=== PATIENT | female | born 1945 | race Caucasian/White ===

== ENCOUNTER → 2016-06-04 | Outpatient (CLI) | payer MEDICARE, BC ==
[~2016-06-04] MED LIST: ALPH1CAP PO; APIX5TAB PO; CALC1TAB87 PO; HYDR12.57 PO; IBUP200C PO; LEVO125T4 PO; MULT-120 PO; NAPR220T95 PO; PROP150T PO; VITA10004 PO; VITATAB21 PO
[2016-06-04 11:35] LABS: BLOOD, URINE NEG (NEG); COMMENT (UR) CULT NOT INDICATED; CULTURE IF INDICATED CULT NOT INDICATED; GLUCOSE,URINE NEG (NEG); KETONE, URINE NEG (NEG); MUCUS URINE FEW /lpf (OCC); NITRITE,URINE NEG (NEG); URINE COLOR LIGHT-YELLOW (YELLW/STRAW)
[2016-06-04 11:50] LABS: INTERNATIONAL NORMALIZED RATIO 0.9 RATIO; PROTHROMBIN TIME - PATIENT 10.3 SEC (9.8-11.6)
[2016-06-04 11:57] LABS: BICARBONATE 30.6 MEQ/L (21.0-32.0); POTASSIUM 4.2 MEQ/L (3.5-5.1)
--- NOTE | 2016-06-04 13:23 | RADRPT ---
EXAM DATE/TIME: 06/04/2016 11:56 [place] COMPARISON: No previous studies available for comparison. INDICATIONS : Evaluate for pneumonia, pneumothorax, or communicable disease. Pre op for carpal tunnel release. MEDICAL HISTORY : None. SURGICAL HISTORY : None. ENCOUNTER: Initial ACUITY: 1 day PAIN SCORE: 0/10 LOCATION: Bilateral chest FINDINGS: PA and lateral views of the chest demonstrate the lungs to be symmetrically aerated without evidence of mass, infiltrate or effusion. The cardiomediastinal contours are unremarkable. A 5 mm nodule proj ects over the right upper lobe. Mild degenerative changes. Osseous structures are intact. Fusion victorino g the lower lumbar spine not completely visualized. CONCLUSION: 1. Right upper lobe nodule measures [address] chest recommended. 2. No infiltrate. Demarco Obrien MD on June 04, 2016 at 13:21 Board Certified Radiologist. This report was verified electronically.
--- NOTE | 2016-06-05 11:37 | EKG ---
Date Performed: 06/04/2016 Time Performed: 11:22:12 PTAGE: 70 years EKG: SINUS BRADYCARDIA WITH SINUS ARRHYTHMIA BORDERLINE ECG NO PREVIOUS TRACING DOCTOR: Víctor Quintana Interpretating Date/Time 06/05/2016 11:36:12
== END ==
LOC: CPRE 10:53
PROVIDERS: ATTEND Orthopaedic Surgery
DX: Z01.810 Encounter for preprocedural cardiovascular examination (principal); Z01.811 Encounter for preprocedural respiratory examination; Z01.812 Encounter for preprocedural laboratory examination; G56.01 Carpal tunnel syndrome, right upper limb
CPT/HCPCS: 36415; 71020; 80048; 81001; 85610; 93005

== ENCOUNTER → 2016-06-07 | Day surgery (SDC) | payer MEDICARE, BC ==
--- NOTE | 2016-06-04 16:23 | MH ---
cc: MARIA EUGENIA RED DATE OF ADMISSION 06/07/2016 ADMITTING DIAGNOSIS Right carpal tunnel syndrome, pain right hand. HISTORY The patient is a 70-year-old white female who has experienced pain and numbness of her right hand of at least three months duration. She had noted the gradual onset of her symptoms unrelated to injury or unusual activity. She had initially conformed to conservative management which included application of various topical agents including Voltaren gel, Alfred-Berger and BioFreeze. She was avoiding use of anti-inflammatory medication as she was diagnosed in February of this past year with atrial fibrillation for which she had been treated with Eliquis. There was no prior history of injury involving her right hand. [facility] and at that time x-ray studies of the right hand were without evidence of acute or chronic bony abnormality. The patient was diagnosed as having tenosynovitis with pain of the hand for which recommendation was made to proceed with EMG evaluation. Subsequent testing in this regard demonstrated right carpal tunnel syndrome of a moderate degree. The patient had remained symptomatic with pain about her right hand which was interfering with all activities of daily living and kept her from returning to golf which had been part of her normal exercise routine. The findings of the study were reviewed and treatment options discussed. The pros and cons of continuing with conservative management versus operative intervention involving a carpal tunnel release was outlined in detail. Emphasis was made regarding the fact that the decision to proceed with surgery would be left entirely to the patient's discretion. She readily admitted that she was quite eager to pursue operative treatment in the hope that it might afford her overall improvement of her ongoing symptoms. In compliance with her wishes she was scheduled for admission at this time in order that the above be accomplished. She is right-hand dominant. PAST MEDICAL HISTORY Her past medical history, hospitalizations and surgeries include: 1. Left total knee arthroplasty. 2. Arthroscopic surgery of her left knee prior to the knee replacement. 3. Tonsillectomy. 4. Appendectomy. 5. Vaginal hysterectomy. 6. Colonoscopy. 7. Sinus surgery. 8. Extensive lumbar spine surgery. 9. And medical management for pneumonia. 10. As well as heart disease for which she was later diagnosed as having atrial fibrillation. Medical illnesses include: 1. Hypothyroidism. 2. Atrial fibrillation. MEDICATIONS Her current medications: 1. Synthroid 125 mcg daily. 2. Propafenone 150 milligrams twice daily. 3. Eliquis 5 mg twice daily. 4. Hydrochlorothiazide 12.5 mg daily. 5. Calcium 600 mg twice daily. 6. Alpha lipoic acid 200 mg daily. 7. Multivitamin 50 Plus one daily. 8. Vitamin C 500 mg daily. ALLERGIES The patient denies any known drug allergies. REVIEW OF SYSTEMS She wears glasses. No headache or seizure. She has had history of vasovagal syncope. Auditory acuity intact. No tinnitus. No bleeding gums or dysphagia. Occasional sinus congestion secondary to environmental irritants. No epistaxis. She has had pneumonia in the past. No tuberculosis. No angina. She is medically managed for atrial fibrillation. Appetite good. Bowel movements regular. No hepatitis, gallbladder disease, ulcers or hemorrhoids. No urinary tract infection. No kidney stones. No history of fractures. No psychiatric illness. Her remaining review of systems is unremarkable and noncontributory. FAMILY HISTORY 53 years, 71 years of age in good health. Two sons indicated to be in good health. Family history is positive for heart disease, pancreatic and esophageal cancer. SOCIAL HISTORY The patient completed a college education. She admits to a 50 pack-year use of tobacco but has discontinued smoking within the past two or more years. Ethanol consumption on a limited and social basis. PHYSICAL EXAMINATION Height 5 feet 5 inches, weight 146 pounds. GENERAL: An alert and oriented and responsive 70-year-old white female who sits quietly upon the examination table in no obvious distress. HEAD, EARS, EYES, NOSE, AND THROAT: Pupils are equally round and reactive to light. Extraocular movements full. Sclerae clear. External nares clear. External auditory canals clear. Dental intact. Mucous membranes pink and moist. Pharynx clear. NECK: Supple. Active range of motion with no significant pain. Carotid pulse palpable bilaterally. Trachea midline. Thyroid without enlargement. LUNGS: Clear to auscultation and percussion. No CVA tenderness. BACK: No discomfort throughout the dorsolumbar spine. HEART: Regular rhythm. No murmur or gallop. ABDOMEN: Soft, nontender. Bowel sounds present. PELVIC: Per primary care physician. EXTREMITIES: Right hand no swelling or discoloration. Intrinsic function is grossly intact with flexion, extension maneuvering. There is diminished sensation generalized about the tip of the thumb. No obvious thenar or hypothenar atrophy. Tinel sign negative. Durkan test positive. Phalen test positive. [employer] strength intact. Radial pulse palpable. NEUROLOGICAL: Cranial nerves II-XII grossly intact. IMPRESSION Right carpal tunnel syndrome, pain right hand. PLAN Right carpal tunnel release. The nature of the planned surgical procedure, the potential complications and risks associated, the expectations of surgery and the consent form were thoroughly reviewed with the patient in the presence of her prior to admission to the hospital. She has indicated a full understanding regarding all of the above and given consent to proceed with treatment as outlined. MD BLAYNE Lyon/KK /3:22 PM /4:02 PM
[~2016-06-07] VITALS: Ht 165.1 cm; Wt 67.0 kg
[~2016-06-07] MED LIST changes: +*morphine SULFATE 8 MG/ML PERIprocedure ONLY ONE; +ACETAMINOPHEN/HYDROcodone 325 MG/5 MG TAB PO PRN; +DO NOT ADM ANY ANTICOAGULANT DRUGS XX PRN; +FAMOTIDINE 20 MG/2 ML VIAL ONE; -IBUP200C PO; +INSULIN HUMAN REGULAR 1,000 UNITS/10 ML VIAL SQ PRN; +LACTATED RINGER'S 1000 ML IV SCH; +METOPROLOL TARTRATE 25 MG TAB PO PRN; +MIDAZOLAM HCL 2 MG/2 ML VIAL ONE; +MORPHINE SULFATE 10 MG/ML INJ IM PRN; -NAPR220T95 PO; +ONDANSETRON HCL 4 MG/2 ML VIAL IV PUSH ONE; +POVIDONE IODINE 7.5% SCRUB 118 ML BOTTLE TOP SCH; +PROMETHAZINE INJ 25 MG/ML VIAL IM PRN; +PROPOFOL 200 MG/20 ML AMP IV ONE; +SODIUM CHLORID 0.9% 500 ML IV SCH; -VITA10004 PO; +ceFAZolin 2 GM PREMIX 50 ML IV SCH; +ePHEDrine/NS 25 MG/5 ML SYR IV ONE
[2016-06-07 06:00] VITALS: BP 165/89; PULSE 62; RESP 18; TEMP 98; O2SAT 97
[2016-06-07 09:21] VITALS: BP 154/78; PULSE 54; RESP 16; TEMP 97.7; O2SAT 95
--- NOTE | 2016-06-08 20:00 | MP ---
cc: MARIA EUGENIA SAMUEL DATE OF SURGERY 06/07/16 PREOPERATIVE DIAGNOSIS Right carpal tunnel syndrome. POSTOPERATIVE DIAGNOSIS Right carpal tunnel syndrome PROCEDURE Right carpal tunnel release. SURGEON Darin Samuel MD ANESTHESIA General by LMA insertion PROCEDURE IN DETAIL Following induction of satisfactory general anesthesia by LMA insertion as completed per the department of anesthesia, a tourniquet was established around the proximal portion of the right upper extremity. The extremity proper was prepped with Betadine solution and draped into a sterile field in the routine manner. Prior to initiation of the actual procedure, the standard time-out protocol was completed. All parameters were appropriately addressed and confirmed by operating room personnel. The extremity was elevated for approximately 1 minute and the tourniquet thus inflated to 200 mmHg pressure. A sharp skin incision was initiated in the mid palmar region immediately distal to the flexor crease of the wrist and developed through underlying subcutaneous tissue with hemostasis maintained by electrocautery. By deepening dissection utilizing loupe magnification, the transverse carpal ligament was identified. Proximally a sharp entry was completed. A mosquito clamp passed deep to the ligamentous structure, superficial to the underlying nerve. Under direct visualization, the ligament was divided into a proximal to distal orientation. Blunt probing proximally and distally confirmed adequate decompression within the confines of the carpal tunnel space. Examination of the underlying median nerve did demonstrate obvious compressive changes with a flattening effect and hyperemic appearance of the nerve itself. The wound was copiously irrigated with saline solution. Hemostasis maintained by electrocautery. Skin margins were thereafter reapproximated with interrupted 4-0 nylon suture. Xeroform gauze and a bulky dry sterile hand dressing applied. Tourniquet deflated after 12 minutes of tourniquet time. Anesthesia discontinued. The patient thus transferred to a hospital stretcher and returned to the recovery room in satisfactory condition having tolerated her operative procedure well. Estimated blood loss was negligible. MD BLAYNE Lyon/ 7:54 AM 7:53 PM
== END | disposition home or self-care (01) ==
LOC: HSDC 05:33
PROVIDERS: ATTEND Orthopaedic Surgery
DX: G56.01 Carpal tunnel syndrome, right upper limb (principal)
CPT/HCPCS: 01810; 64721; J0690; J2250; J2270; J2405; J3010; J7120

== ENCOUNTER 2017-11-17 11:56 | Observation (INO) ==
[2017-11-17] MEDS ORDERED: Morphine Inj 4 MG/ML Vial IV.PUSH ONE (12:13)
--- NOTE | 2017-11-17 12:27 | ED ---
HPI General Chief Complaint: Chest Pain Stated Complaint: Chest Pain/SOB Time Seen by Provider: 11/17/17 12:08 Source: patient Mode of arrival: ambulatory Limitations: no limitations History of Present Illness HPI narrative: 72 yo F patient arrives with a complaint of retrosternal chest pain 8 or 9/10 in severity which started about 2 hours ago after she had an unpleasant phone conversation. There is radiation to the left arm intermittently. Patient reports a history of hypertension and atrial fibrillation. She takes Eliquis. No fever or cough. No vomiting. MD complaint: chest pain Complete Quality Measures for STEMI Alert Patients STEMI Alert: No Onset (ago): hour(s) (2) Duration: constant Onset: other (after an unpleasant phone call) Pain location: substernal Severity scale (1-10): 9 Pain radiation: LUE Associated symptoms: other (sweats all over) Related Data Home Medications Medication Instructions Recorded Confirmed apixaban [Eliquis] 5 mg PO BID 10/01/17 11/17/17 levothyroxine 175 mcg PO DAILY 10/01/17 11/17/17 multivitamin with minerals 1 tab PO DAILY 10/01/17 11/17/17 [Multiple Vitamin-Minerals] propafenone 150 mg PO BID 10/01/17 11/17/17 cyanocobalamin (vitamin B-12) 1,000 mcg PO DAILY 10/06/17 11/17/17 [Vitamin B-12] losartan-hydrochlorothiazide 1 tab PO DAILY 10/06/17 11/17/17 calcium carbonate [Calcium 500] 600 mg PO BID 11/08/17 11/17/17 cholecalciferol (vitamin D3) 5,000 unit PO DAILY 11/08/17 11/17/17 [Vitamin D3] Allergies Allergy/AdvReac Type Severity Reaction Status Date / Time No Known Allergies Allergy Unknown NONE Uncoded 10/06/17 09:34 Review of Systems ROS: all other systems reviewed are negative Constitutional Denies fever(s) PMFSH Social History Social History Substance History: No History of Abuse Second Hand Smoke Exposure: No Smoking Status: Former smoker How Often Do You Have a Drink Containing Alcohol: 2 to 4 times a month Recent Travel in [facility] within the Last 8 Weeks: No Recent Out of Country Travel within the Last 8 Weeks: No Exam Narrative Exam Narrative: GENERAL: 72-year-old female well-nourished well-developed mild to moderate distress secondary to pain SKIN: Focused skin assessment warm/dry. HEAD: Atraumatic. Normocephalic. EYES: Pupils equal and round. No scleral icterus. No injection or drainage. ENT: No nasal bleeding or discharge. Mucous membranes pink and moist. NECK: Trachea midline. No JVD. CARDIOVASCULAR: Regular rate and rhythm. No murmur appreciated. RESPIRATORY: No accessory muscle use. Clear to auscultation. Breath sounds equal bilaterally. GASTROINTESTINAL: Abdomen soft, non-tender, nondistended. Hepatic and splenic margins not palpable. MUSCULOSKELETAL: No obvious deformities. No clubbing. No cyanosis. No edema. NEUROLOGICAL: Awake and alert. No obvious cranial nerve deficits. Motor grossly within normal limits. Normal speech. PSYCHIATRIC: Appropriate mood and affect; insight and judgment normal. Course Reevaluation(s) Reevaluation #1: d/w Dr Alfredo for cardiology placed o2 nc work up started ongoing monitoring Time: 12:22 Reevaluation #2: PT reports pain has improved. It was sharp now more dull. VSS. Time: 12:46 Reevaluation #3: Mild persistent pain. Results d/w with patient about [address] Alfredo is at the bedside now. Speaking in full sentences. VSS. Update at 1400 hrs.: The patient will be admitted to the main site with a plan for emergent coronary catheterization. She has had persistent pain. Vital signs are normal. Patient speaking in full sentences warm dry skin sitting upright. Discussed with Dr. Ward. Nitropaste and NS gtt started. No heparin 2 /2 Eliquis. Time: 13:31 Initial Documented Vital Signs Temperature 97.5 F L 11/17/17 12:10 Pulse Rate 65 11/17/17 12:10 Respiratory Rate 26 H 11/17/17 12:10 Blood Pressure 157/94 H 11/17/17 12:10 Pulse Oximetry 100 11/17/17 12:10 Last Documented Vital Signs Temperature 97.5 F L 11/17/17 12:10 Pulse Rate 66 11/17/17 13:05 Respiratory Rate 18 11/17/17 13:05 Blood Pressure 122/71 11/17/17 13:05 Pulse Oximetry 98 11/17/17 13:05 Critical Care Time Critical Care Time: Yes Total Critical Care Time: 35 Attestation: Aggregate critical care time was 45 minutes. Time to perform other separately billable procedures was not included in the critical care time. My time did not include minutes spent treating any other patients simultaneously or on activities that did not directly contribute to the patient's treatment. The services I provided to this patient were to treat and/or prevent clinically significant deterioration that could result in: cardiopulmonary arrest, I provided critical care services requiring my management, as noted below: Chart data review, documentation time, medication orders and management, vital sign assessments/reviewing monitor data, ordering and reviewing lab tests, ordering and interpreting/reviewing x-rays and diagnostic studies, care of the patient and discussion of the patient with the admitting physicians. Medical Decision Making MDM Narrative Medical decision making narrative: EVAC called emergently at 1355 Admission for NSTEMI with transfer to [facility] for emergent cath. Lab Data Lab results reviewed: Yes I reviewed the patient's lab results. Lab results narrative: Tn 0.38 Result diagrams: 11/17/17 12:20 11/17/17 12:20 Lab Results 11/17/17 11/17/17 11/17/17 Range/Units 12:20 12:20 12:20 CBC w Diff Auto diff final WBC 10.9 (4.0-11.0) th/mm3 RBC 4.46 (4.00-5.30) mil/mm3 Hgb 13.9 (11.6-15.3) gm/dL Hct 41.7 (35.0-46.0) % MCV 93.5 (80.0-100.0) fL MCH 31.2 (27.0-34.0) pg MCHC 33.3 (32.0-36.0) % RDW 13.7 (11.6-17.2) % Plt Count 334 (150-450) th/mm3 MPV 8.2 (7.0-11.0) fL Neut % (Auto) 72.7 H (16.0-70.0) % Lymph % (Auto) 19.1 (9.0-44.0) % Haralson % (Auto) 6.9 (0.0-8.0) % Eos % (Auto) 0.7 (0.0-4.0) % Baso % (Auto) 0.6 (0.0-2.0) % Neut # (Auto) 7.8 H (1.8-7.7) th/mm3 Lymph # (Auto) 2.1 (1.0-4.8) th/mm3 Haralson # (Auto) 0.8 (0.0-0.9) th/mm3 Eos # (Auto) 0.1 (0.0-0.4) th/mm3 Baso # (Auto) 0.1 (0.0-0.2) th/mm3 WBC Differential . Differential Comment . PT 10.3 (9.8-11.6) sec INR 1.0 Ratio APTT 25.9 (24.3-30.1) sec Sodium 136 (136-145) meq/L Potassium 3.9 (3.5-5.1) meq/L Chloride 101 (98-107) meq/L Carbon Dioxide 24.7 (21.0-32.0) meq/L Anion Gap 10 (5-15) meq/L BUN 19 H (7-18) mg/dL Creatinine 0.97 (0.50-1.00) mg/dL Estimated GFR 56 L (>89) mL/min Random Glucose 123 H (74-106) mg/dL Calcium 9.3 (8.5-10.1) mg/dL Magnesium 2.2 (1.5-2.5) mg/dL Total Creatine Kinase 105 (26-192) U/L CK-MB (CK-2) 3.0 (0.5-3.6) ng/mL Troponin I 0.38 H (0.02-0.05) ng/mL Imaging Data Attestation: I personally reviewed and interpreted this imaging study as follows : My impression: No PTX, no widened mediastinum Radiologist's impression: Chest X-Ray 11/17/17 12:13 CONCLUSION: No consolidation or effusion. Minimal basilar scarring or atelectasis. ECG Data EKG Prior to Arrival: No Attestation: I personally reviewed and interpreted this ECG as follows: Interpretation: EKG shows sinus rhythm with a rate of 66 normal axis intervals, nonspecific ST changes multiple leads Discharge Plan Discharge Disposition Patient Disposition: 30 Still Patient Physicians Team ED Provider: Adolfo Florence Primary Care Provider: Casper Vanessa Rxs /Orders / Referrals /Forms Prescriptions: No Action calcium carbonate [Calcium 500] 500 mg calcium (1,250 mg) Tablet 600 mg PO BID RF: 0 cholecalciferol (vitamin D3) [Vitamin D3] 5,000 unit Tablet 5,000 unit PO DAILY RF: 0 propafenone 150 mg Tablet 150 mg PO BID RF: 0 levothyroxine 175 mcg Tablet 175 mcg PO DAILY RF: 0 multivitamin with minerals [Multiple Vitamin-Minerals] Tablet 1 tab PO DAILY RF: 0 apixaban [Eliquis] 5 mg Tablet 5 mg PO BID RF: 0 losartan-hydrochlorothiazide 50-12.5 mg Tablet 1 tab PO DAILY RF: 0 cyanocobalamin (vitamin B-12) [Vitamin B-12] 1,000 mcg Tablet 1,000 mcg PO DAILY RF: 0 Discharge Instructions Patient Printed Instructions: Chest Pain (ED) Status ED Status: Ready for Discharge
--- NOTE | 2017-11-17 12:41 | XR ---
EXAM DATE: 11/17/2017 12:32 PM EDT AGE/SEX: 72 years / Female INDICATIONS: Chest pain. CLINICAL DATA: This is the patient's initial encounter. Patient reports that signs and symptoms have been present for 1 day and indicates a pain score of 8/10. MEDICAL/SURGICAL HISTORY: . Atrial fib None. COMPARISON: No prior exams available for comparison. FINDINGS: A single AP view of the chest demonstrates the lungs to be symmetrically aerated without evidence of mass, infiltrate or effusion. The cardiomediastinal contours are unremarkable. Osseous structures a re intact. CONCLUSION: No consolidation or effusion. Minimal basilar scarring or atelectasis. Electronically signed by: Kenny Denney MD 11/17/2017 12:40 PM EDT
[2017-11-17 12:45] LABS: Baso # (Auto) 0.1 th/mm3 (0.0-0.2); Baso % (Auto) 0.6 % (0.0-2.0); Eos # (Auto) 0.1 th/mm3 (0.0-0.4); Eos % (Auto) 0.7 % (0.0-4.0); Hematocrit 41.7 % (35.0-46.0); Hemoglobin 13.9 gm/dL (11.6-15.3); Lymph # (Auto) 2.1 th/mm3 (1.0-4.8); Lymph % (Auto) 19.1 % (9.0-44.0); Mean Corpuscular HGB Conc 33.3 % (32.0-36.0); Mean Corpuscular Hemoglobin 31.2 pg (27.0-34.0); Mean Corpuscular Volume 93.5 fL (80.0-100.0); Mean Platelet Volume 8.2 fL (7.0-11.0); Mono # (Auto) 0.8 th/mm3 (0.0-0.9); Mono % (Auto) 6.9 % (0.0-8.0); Neut # (Auto) 7.8 th/mm3 (1.8-7.7); Neut % (Auto) 72.7 % (16.0-70.0); Platelet Count 334 th/mm3 (150-450); Red Blood Count 4.46 mil/mm3 (4.00-5.30); Red Cell Distribution Width 13.7 % (11.6-17.2); White Blood Count 10.9 th/mm3 (4.0-11.0)
--- NOTE | 2017-11-17 12:58 | ECG ---
Date Performed: 11/17/2017 Time Performed: 12:01:16 PTAGE: 72 years EKG: Sinus rhythm WITH SINUS ARRHYTHMIA LOW QRS VOLTAGE IN EXTREMITY LEADS SEPTAL MYOCARDIAL INFARCTION ABNORMAL ECG N o significant change from prior electrocardiogram. PREVIOUS TRACING : 06/04/2016 11.22 DOCTOR: Bay Mendez Interpretating Date/Time 11/17/2017 12:57:07
[2017-11-17 12:59] LABS: Chloride 101 meq/L (98-107); Potassium 3.9 meq/L (3.5-5.1); Sodium 136 meq/L (136-145)
[2017-11-17 13:02] LABS: Anion Gap 10 meq/L (5-15); Calcium 9.3 mg/dL (8.5-10.1); Carbon Dioxide 24.7 meq/L (21.0-32.0); Glucose,Random 123 mg/dL (74-106); Magnesium 2.2 mg/dL (1.5-2.5)
[2017-11-17 13:03] LABS: Blood Urea Nitrogen 19 mg/dL (7-18)
[2017-11-17 13:05] LABS: Activated Partial Thrombo Time 25.9 sec (24.3-30.1); Prothrombin Time 10.3 sec (9.8-11.6)
[2017-11-17 13:06] LABS: Glomerular Filtration Rate 56 mL/min (>89)
[2017-11-17 13:09] LABS: Creatine Kinase 105 U/L (26-192)
[2017-11-17 13:11] LABS: Troponin I 0.38 ng/mL (0.02-0.05)
[2017-11-17] MEDS ORDERED: Heparin 10,000 UNITS/10 ML Vial (for IV use) IV.PUSH STA (13:35)
[2017-11-17] MEDS: Sod Chloride 0.9% Inj 1,000 ML IV.CONT SCH (13:54)
[2017-11-17] MEDS ORDERED: Heparin/NS PF Inj 1,000 ML ONE (14:32)
[2017-11-17] MEDS ORDERED: fentaNYL Citrate Inj 100 MCG/2 ML Ampul ONE (14:33)
[2017-11-17] MEDS ORDERED: Heparin 10,000 UNITS/10 ML Vial (for IV use) ONE (14:33)
--- NOTE | 2017-11-17 15:29 | ECG ---
Date Performed: 11/17/2017 Time Performed: 13:33:00 PTAGE: 72 years EKG: Sinus rhythm WITH SINUS ARRHYTHMIA LOW QRS VOLTAGE IN EXTREMITY LEADS SEPTAL MYOCARDIAL INFARCTION ABNORMAL ECG N o significant change from prior electrocardiogram. PREVIOUS TRACING : 11/17/2017 12.01 DOCTOR: Bay Mnedez Interpretating Date/Time 11/17/2017 15:27:37
--- NOTE | 2017-11-17 16:02 | MB ---
cc: Leydi Cardenas MD, Mark MD , DATE: 11/17/2017 REASON FOR CONSULTATION: Chest discomfort, rule out acute coronary syndrome. HISTORY OF PRESENT ILLNESS: Ms. Kasper is a pleasant 72-year-old lady with a history of hypertension, mitral valve prolapse, paroxysmal atrial fibrillation, hyperlipidemia, who comes in this morning with about a 3-hour history of left-sided chest discomfort, heaviness in nature with no associated shortness of breath, palpitations or nausea. It is nonradiating. This came after an argument over the phone. She has had a history of dyspnea on exertion. She does not exercise with a cardio type of exercise on a regular basis. She walks sometimes on an incline after dinner with no discomfort. Denies palpitations, dizziness or syncope in general. Denies orthopnea, PND or leg swellings. Denies claudications. PAST MEDICAL HISTORY: Includes: 1. As mentioned above. 2. History of questionable myocardial infarction in 2008. 3. Gastroesophageal reflux disease. 4. Rheumatic fever in 1951. 5. Certain mitral valve prolapse. 6. Mild to moderate valvular heart disease with mild pulmonary hypertension. 7. Paroxysmal atrial fibrillation. 8. Hypothyroidism. 9. Hyperlipidemia. 10. Hypertension. PAST SURGICAL HISTORY: Includes the followin. Left knee replacement in 2014. 2. Left foot surgery in 2009. 3. Back surgery in 1992. 4. Hysterectomy in 1972. 5. Tonsillectomy in 1959. SOCIAL HISTORY: She used to smoke but stopped about 5 years ago. Denies ETOH abuse or recreational drug use. and lives with her . FAMILY HISTORY: Positive for coronary artery disease, hypertension and diabetes. No cancer. ALLERGIES: NO KNOWN DRUG ALLERGIES. MEDICATIONS: Include: 1. Eliquis 5 mg p.o. b.i.d. 2. Losartan/hydrochlorothiazide 50/12.5 mg p.o. daily. 3. Propafenone 150 mg p.o. b.i.d. 4. Synthroid 0.175 mg p.o. daily. 5. Ventolin inhaler. 6. Vitamin B12 at 1000 mcg p.o. daily. 7. Vitamin C 500 mg daily. 8. Multivitamins once daily. REVIEW OF SYSTEMS: A 12-point system review was unremarkable, except what is mentioned in the history of present illness. PHYSICAL EXAMINATION: GENERAL: A 72-year-old lady lying in bed, in no clear apparent distress, alert, oriented x3, answers questions appropriately. VITAL SIGNS: Blood pressure 132/74 mmHg, pulse 74 beats per minute and regular, respiration 14 per minute, afebrile. HEENT: Shows head is normocephalic. Pupils are equal and reactive. Throat is within normal limits. NECK: Supple. No carotid bruit. No thyromegaly. No jugular venous distention noted. LUNGS: A few crepitations at the bases, but otherwise clear. There is some diminished air entry bilaterally, which is not a new finding. CARDIOVASCULAR: S1 and S2 are normal with a faint S4 gallop and 1/6 systolic murmur across the precordium. ABDOMEN: Lax, nontender. Normoactive bowel sounds. No organomegaly. No masses felt. EXTREMITIES: No clubbing, cyanosis or edema. Pulses 2+ bilaterally. NEUROLOGIC: Grossly intact with no focal deficits. RECTAL: Deferred. DIAGNOSTIC DATA: EKG shows sinus rhythm with what seems to be early repolarization changes in the anterior and also the high lateral leads; however, somewhat more prominent compared to her baseline. There is no clear reciprocal ST depression in the inferior or lateral leads. LABORATORY DATA: Shows a white count of 10.9, hemoglobin of 13.9 with a platelet count of 334,000. INR of 1.01 and PTT of 25.9. Sodium 136, potassium 3.9, BUN 19, creatinine 0.97. Troponin I is 0.38. ASSESSMENT AND RECOMMENDATIONS: 1. Chest discomfort that has some atypical components; however, on top of EKG changes that might represent an acute event as well as mildly elevated troponin, she was advised to proceed with a cardiac catheterization on an urgent basis. The risks and benefits were all fully explained. Risks explained include, but not limited to bleeding, infection, blood clots, arrhythmia, myocardial infarction, cerebrovascular accident, , arterial dissection or perforation, renal failure, loss of limb, emergency bypass, etc., were all fully explained and benefits were explained and she is agreeable and wants to proceed. The increased risk of bleeding was also discussed with the fact that she is on Eliquis. 2. Paroxysmal atrial fibrillation. Remains in sinus rhythm. Continue propafenone. 3. Hyperlipidemia. Most recent lipid panel from July shows an LDL cholesterol of 65, HDL of 72 and triglycerides of 65. 4. Certain mitral valve prolapse, mild valvular regurgitation. Stable. Depending on the results of her cardiac catheterization, we will decide whether she will need a repeat echocardiogram. 5. Hypertension. Controlled. MD INDU Fair/tamanna , 01:59 PM , 02:11 PM
--- NOTE | 2017-11-17 16:18 | CATHPROC ---
[facility] HIS Report Study Information Study Number Admission Scheduled Start Study Start [id number] Nov 17 2017 11:56AM 11/17/2017 Nov 17 2017 3:01PM [place] Service Cardiac Catheterization Admit Source Facility Department Emergency department [facility] - Corporate Travel Expert Physician and Clinical Staff Initial MD Cardenas, Leydi Ice Cream Freezer Assistant Leana Hood,RN Recorder Casper Cody,RT(R) Scrub Pina Benson,FLUME MAKER TECH2 Procedures Performed Procedure Location (Site) Vessel Name Coronary Angiograms LCA Left Coronary Coronary Angiograms RCA Right Coronary LV Gram-hand inj. LV LV Ventricle Wire insertion Radial (right) Radial Art. Equipment Time Aircraft Electronics Technical Officer Description Size Mfg Part Number Used/Scraped TRANSDUCER, TRUWAVE [id number] 15:03 apiOmat * Used W/STOCKCOCK *[id number] INTRODUCER SET, [id number] 15:23 [employer] FR 5 Used MICROPUNCTURE *[id number] 15:03 Post-i BLANKET,WARM AIR CCL * Used *[id number] 15:03 Post-i PACK, CCL CUSTOM * Used *[id number] 15:03 [employer] PACER PEN, SKIN DUAL W/ RULER * Used *[id number] BAND, RADIAL COMPRESSION TR [id number] 15:46 APR MEDICAL 24CM Used SHORT 24 *[id number] 15:03 Digitel SHEATH, FR6.5 PRELUDE 11CM FR 6.5 038ACT Used *[id number] 15:03 [employer]itel WIRE, 3MMJ .035 180CM 180CM Used *[id number] 15:03 NAMIC MANIFOLD, 4 PORT * Used *[id number] 15:03 NYCOMED OMNIPAQUE, 350 MG, 150ML 150ML [id number] Used CATHETER, FR5 OPTITORQUE [id number] 15:18 TERUMO MEDICAL FR 5 Used RADIAL TIG 4.0 *[id number] SHEATH, FR6 TRANSRADIAL [id number] 15:28 TERUMO MEDICAL FR 6 Used SLENDER 10CM *[id number] History: Current Medications Medication Dosage/Unit Route Frequency Last Date/Time Taken COZAAR ELIQUIS History: Allergies Allergy Reaction No Known Allergies NONE History: Risk Factors Family History of Hypertension Dyslipidemia Previous [place] Previous Heart Failure Premature CAD Yes No No No No Prior Valve Prior PCI Prior CABG Surgery No No No Cerebrovascular Peripheral Artery Chronic Lung On Dialysis Diabetes Disease Disease Disease No No No No No History: Symptoms/Diagnosis Selection Items Chest pain History: Stress Tests Stress or Imaging Studies Performed No History: Other Disease Selection Items HTN History: Other Current Smoker Method Quit Packs a Day Years Used Pack Years No Cigarettes 5 Years Ago 1 50 50 Labs Hgb (g/dl) Hct (%) RBC (MIL/MM3) WBC (l/cumm) Platelets (thousands) 11.60-17.00 35.00-51.00 4.00-5.90 4.00-11.00 150.00-450.00 13.9 41.7 4.4 10.9 334 Glucose (mg/dl) BUN (mg/dl) Creatinine (mg/dl) BUN:Creatinine (1:x) 74.00-106.00 7.00-18.00 0.50-1.30 10.00-20.00 123 19 0.9 21.1 Na (meq/l) K (meq/l) Cl (meq/l) CO2 (mmol/L) Ca (mg/dl) 136.00-145.00 3.50-5.10 98.00-107.00 21.00-32.00 8.50-10.10 136 3.9 101 24.7 9.3 PT (sec) PTT (sec) INR (PTT:PT) 9.80-11.60 24.30-30.10 0.90-1.10 10.3 25.9 1 Troponin I (ng/ml) CPK (u/l) CPK-MB (ng/ML) 0.02-0.05 26.00-308.00 0.50-3.60 0.38 105 3.0 Medication Medication Total Dose (Bolus/Oral) Medication Total Dosage/Unit 1% XYLOCAINE 5 mL FENTANYL 50 mcg HEPARIN 1000 units NITRO OINTMENT 1 inches NTG (IC) 350 mcg VERAPAMIL 2.5 mg VERSED 1 mg Medications (Bolus/Oral) Medication Time Given Dosage/Unit Administered By Reason NITRO OINTMENT 11/17/2017 3:05:26 PM 1 inches Patient arrived on 1 inches NITRO OINTMENT in Left shoulder via Peripheral IV. VERSED 11/17/2017 3:20:58 PM 1 mg Adamy, Leana 1 mg VERSED given in lab by Leana Hood, MYKEL via Peripheral IV. Ordered by Leydi Cardenas. FENTANYL 11/17/2017 3:21:11 PM 50 mcg Leana Hood 50 mcg FENTANYL given in lab by Leana Hood, RN via Peripheral IV. Ordered by Leydi Cardenas. 1% XYLOCAINE 11/17/2017 3:22:35 PM 5 mL Leydi Cardenas 5 mL 1% XYLOCAINE given in lab by Leydi Cardenas in Right Wrist via Subcutaneous. Ordered by Leydi Cardenas. VERAPAMIL 11/17/2017 3:29:09 PM 2.5 mg Leydi Cardenas 2.5 mg VERAPAMIL given in lab by Leydi Cardenas via Intra-arterial. Ordered by Leydi Cardenas. NTG (IC) 11/17/2017 3:29:22 PM 250 mcg Leydi Cardenas 250 mcg NTG (IC) given in lab by Leydi Cardenas via Intra-arterial. Ordered by Leydi Cardenas. HEPARIN 11/17/2017 3:29:45 PM 1000 units Leydi Cardenas 1000 units HEPARIN given in lab by Leydi Cardenas via Intra-arterial. Ordered by Leydi Cardenas. NTG (IC) 11/17/2017 3:34:26 PM 100 mcg Leydi Cardenas 100 mcg NTG (IC) given in lab by Leydi Cardenas via Intra-coronary. Ordered by Leydi Cardenas. Initial Case Assessment Final Case Assessment Cardiovascular HR Rhythm NIBP Chest Pain 75 sr 107/70 0 Edema Present Skin color Skin None Normal Warm Dry Circulatory - Right Pulses Dorsalis Pedis Femoral 3 3 Scale (0,1,2,3,4,d) Circulatory - Left Pulses Dorsalis Pedis Femoral 3 3 Scale (0,1,2,3,4,d) Neurological State Oriented to time-place- Alert Moves all extremities person Respiration - General Respiration Rate SpO2 (%) O2 (lpm) (B/min) 18 96 0 Chronological Log Time Study Chronological Log 15:01:29 Patient arrived via Bed. Positive Allens test performed by Guanako Abernathy. 15:01:31 Patient Name, D.O.B, / Armband Verified By R.N. 15:01:33 Consent signed by the physician and the patient and verified by the Corporate Travel Expert staff. 15:01:33 Pre-op and post- op instructions given; patient acknowledges understanding of instructions. 15:01:36 Allens test performed on the left radial and ulnar artery. 15:01:37 Patient has been NPO for More than 6Hrs. 15:03:20 Skin Breakdown- none per patient. 15:04:02 Verbal Stimulation=2 Physical Stimulation=2 Airway=2 Respiration=2 TOTAL=8. (0=absent, 1=li mited, 2=present) 15:05:07 Patient Warmer Placed on the Table. 15:05:09 Odalys Prominences Protected 15:05:10 A # 20 IV was noted in the Antecubital (left). Grade = 0 15:05:11 A # 20 IV was noted in the Forearm (left). Grade = 0 15:05:26 Patient arrived on 1 inches NITRO OINTMENT in Left shoulder via Peripheral IV. 15:05:27 MD arrived. 15:05:53 History and physical on the chart or being dictated. 15:05:54 Assessment: Initial Case Vitals capture started with the following parameters, Patient=Adult, Interval=5 min, Initial Pr zyaxdr=362 mmHg, 15:07:31 Deflation Rate=5 mmHg, Cuff placed on Left Arm 15:08:08 YQVC=973/89 mmhg, SpO2=86.0 %, Pain=4, Fernando=10, Shaikh=2 15:11:08 Right Radial and groin(s) prepped with 2% chlorhexidine, and draped after a 3 min. waiting time. 15:13:34 HR=68 bpm, ESXH=853/80 mmhg, SpO2=91.0 %, Pain=4, Fernando=10, Shaikh=2 15:15:34 Reference ECG taken 15:15:38 Pressure channel 1 zeroed. 15:16:02 Pt belongs given to family in waiting room. 15:18:45 HR=64 bpm, OUWL=544/75 mmhg, SpO2=97.0 %, Shaikh=2 Time Out. Correct patient, correct procedure, correct physician, labs, allergies, and equipment verified with distillery laborer 15:20:03 team present. Fire risk assesment completed (see hard stop sheet for coding). Time Out Conc urred by and individual staff in procedure. 15:20:12 Presedation re-assessment performed by Corporate Travel Expert RN. 15:20:14 Case Start 15:20:16 Verbal Stimulation=2 Physical Stimulation=2 Airway=2 Respiration=2 TOTAL=8. (0=absent, 1=li mited, 2=present) 15:20:58 1 mg VERSED given in lab by Leana Hood, MYKEL via Peripheral IV. Ordered by Wes Cardenas 15:21:11 50 mcg FENTANYL given in lab by Leana Hood, MYKEL via Peripheral IV. Ordered by Laurence Cardenas shryana. 15:22:35 5 mL 1% XYLOCAINE given in lab by Leydi Cardenas in Right Wrist via Subcutaneous. Ordered b Leydi Abdalla. 15:23:06 HR=65 bpm, EXTO=468/76 mmhg, SpO2=98.0 %, Shaikh=2 15:26:05 Access site was Right Radial Artery . A SHEATH, FR6 TRANSRADIAL SLENDER 10CM FR 6 was advanced into the Radial (right) using the Perc utaneous 15::58 technique. 15:28:09 HR=39 bpm, NIBP=97/60 mmhg, SpO2=95.0 %, Shaikh=2 15:29:09 2.5 mg VERAPAMIL given in lab by Leydi Cardenas via Intra-arterial. Ordered by Kimo Cardenas af. 15:29:22 250 mcg NTG (IC) given in lab by Leydi Cardenas via Intra-arterial. Ordered by Kimo Cardenas af. 15:29:45 1000 units HEPARIN given in lab by Leydi Cardenas via Intra-arterial. Ordered by Theresa, As hraf. A CATHETER, FR5 OPTITORQUE RADIAL TIG 4.0 FR 5 was advanced over a wire. OMNIPAQUE, 350 MG, 150 ML 150ML 15:30:49 was used for injections. Recorded Pressure: Ao, HR=71, Condition=Condition 1 15:32:48 (Aorta) Ao 111/68/88 15:33:04 HR=66 bpm, SVQN=161/63 mmhg, SpO2=92.0 %, Shaikh=2 Recorded Pressure: Ao, HR=63, Condition=Condition 1 15:33:12 (Aorta) Ao 105/63/82 15:34:26 100 mcg NTG (IC) given in lab by Leydi Cardenas via Intra-coronary. Ordered by Kimo Cardenas af. 15:35:43 The LCA was injected and visualized at various angles. OMNIPAQUE, 350 MG, 150ML 150ML used . 15:37:52 The RCA was injected and visualized at various angles. OMNIPAQUE, 350 MG, 150ML 150ML used . 15:38:07 HR=63 bpm, UZYU=971/61 mmhg, SpO2=94.0 %, Shaikh=2 15:41:04 A WIRE, 3MMJ .035 180CM 180CM was inserted via Radial (right). Recorded Pressure: LV, HR=64, Condition=Condition 1 15:41:47 (Left Ventricle) LV 109/12/25 15:42:16 The LV was manually injected with 10 cc's and visualized. OMNIPAQUE, 350 MG, 150ML 150ML us ed. 15:43:04 HR=70 bpm, NIBP=82/52 mmhg, SpO2=97.0 %, Shaikh=2 Recorded Pressure: LV, Ao, HR=68, Condition=Condition 1 15:43:47 (Left Ventricle) LV 110/13/31, (Aorta) Ao 116/65/89 15:44:39 Catheter was removed 15:45:18 Case End (Physician broke scrub) 15:48:12 BAND, RADIAL COMPRESSION TR SHORT 24 24CM placement in the Radial (right) Radial Compression Device Used. 12 mLs of air placed in BAND, RADIAL COMPRESSION TR SHORT 24 2 4CM. Affected 15:48:26 hand 96 % O2 saturation. 15:48:29 BYMF=153/70 mmhg, SpO2=96.0 %, Shaikh=2 Assessment: Final Case, HR=75 BPM, Rhythm=sr, EKPA=021/70 mmhg, Chest Pain=0, Edema=None, [place] r=Normal, Skin = Warm, Dry Right Pulses: [place] Ped=3, Femoral=3 15:48:47 Left Pulses: [place] Ped=3, Femoral=3 Neurological: State=Alert, Ox3, [place] Respiration: Resp=18 B/min, SpO2=96 %, O2=0 lpm 15:51:47 Catheter(s) removed without difficulty 15:59:41 Sterile dressing applied to site 15:59:43 No case complications noted. 15:59:46 Cine recording checked. 15:59:52 Bedside Report will be given. End Study - Contrast Media Used In Study Contrast Total Opened (mL) Total Used (mL) Total Wasted (mL) Omnipaque 35 35 0 End Study - Maximum Contrast Load Max Contrast Load (mL) 328.3 End Study - Radiation Exposure Fluoro Time (minutes) 5.0 End Study - Patient Disposition Complications Transferred To Telemetry Bed
[2017-11-17] MEDS ORDERED: Iohexol 350 MG/ML 50 ML Vial (for Cath Lab) IVCONTRAST ONE (16:46)
--- NOTE | 2017-11-17 17:53 | MA ---
cc: Leydi Cardenas MD Casper London DATE: 11/17/2017 PROCEDURES: 1. Left heart catheterization through the right radial approach. 2. Coronary arteriogram. 3. Left ventriculogram. TELEX OPERATOR: Leydi Cardenas MD. LINE INSTALLER REPAIRER: RT Marie (R). INDICATIONS: Presentation with chest discomfort, ST segment changes, and mildly elevated troponin, suggestive of an acute coronary syndrome. Because of the persistence of the discomfort and the above presentation, she was advised to proceed with a cardiac catheterization on an emergency basis. EQUIPMENT USED: 5-Paraguayan Terumo with an inner [place]agu[place] 6 sheath. Micro kit. A 5-[place]aguayan TIG 4.0 catheter. OPERATIVE PROCEDURE IN DETAIL: After obtaining informed consent, the right radial area was prepped in the usual sterile technique. 1 mL of 1% lidocaine was used for local anesthesia. Using the modified Seldinger technique, the radial artery was cannulated and a 5-[place]agu[place] Terumo sheath was advanced without difficulty. The TIG catheter was then advanced over a 0.035 J wire. At the juncture of the axillary/brachial artery connection, there was a bend, and the wire was having difficulty; however, advancing the TIG catheter was able to overcome this, and the wire was then forwarded to the aortic cusp and TIG catheter was following. This was followed by selective coronary arteriograms, followed by left ventriculogram performed in the ROY view, 30-degree angle, using the same catheter and with a hand injection, because of an underlying LVEDP at 32 mmHg. At the end of the procedure, sheath was removed and adequate hemostasis achieved by applying a wrist band. The patient tolerated the procedure well without acute complication at the time of dictation. A radial approach was used also because she is on chronic anticoagulation with Eliquis. CARDIAC CATHETERIZATION FINDINGS: HEMODYNAMICS: Aortic pressure was 110/70 mmHg. Aortic pressure was 83 mmHg. There was no gradient across the aortic valve. Left ventricular end diastolic pressure was elevated to 32 mmHg. CORONARY ARTERIES: Left main artery arose from the sinus of Valsalva and it had a distal 10% eccentric plaque. Left anterior descending artery branched from the left main artery with an ostial 10%, mid diffuse 20% to 30%. It bifurcated to a dual LAD system diagonal and the LAD proper, which extended to the apex. The LAD in that area in the mid to distal juncture had a 60%, somewhat hazy plaque initially with MAYRA grade 2 flow, but with the third injection, it had MAYRA grade 3 flow. The LAD also gives smaller diagonal and septal branches with mild diffuse irregularities. Left circumflex artery branched from the left main artery. A relatively small caliber vessel. It gave a high OM that had a mid hazy 30% to 40% disease. The circumflex proper extended distally to give an AV groove artery and distal 2 minute PLV branches and an AV groove artery with mild luminal irregularities of less than 20%. Right coronary artery arose from right sinus of Valsalva. This was a dominant vessel. The proximal portion at 30% to 40% beaded lesions, so as the mid area. An RV branch had an ostial 95% stenosis. Distally, it gave a PDA and PLV arteries with mild luminal irregularities. The flow in the RV branch with MAYRA grade 3 flow. Gave a high conus branch with minimal irregularities of less than 20%. LEFT VENTRICULOGRAM: Left ventriculogram revealed a mid to distal antral apical and distal inferior severe hypokinesis to akinesis, especially of the apex. The proximal martinez move the best and this is a reflection of Takotsubo syndrome. The left ventricular systolic function is moderately reduced with an ejection fraction around 35%. CONCLUSIONS OF THE CARDIAC CATHETERIZATION: 1. Mild disease of the left main with mild disease of the left circumflex and moderate disease of the left circumflex obtuse marginal. 2. Moderate to borderline significant mid to distal left anterior descending artery disease with MAYRA grade 3 flow (small caliber area will be treated medically. The patient, at the time of the catheterization and the injections, was pain free). 3. Dominant right coronary artery with mild to moderate diffuse disease and significant disease of the mid right ventricular branch (small in caliber and will be treated medically). 4. Moderate left ventricular systolic dysfunction with a picture of Takotsubo syndrome. RECOMMENDATIONS: Medical therapy with control of risk factors. Aspirin, as well as SAURABH inhibitors, and beta blockers will be added to her regimen, as long as the blood pressure and heart rate tolerates. MD INDU Fair/vidya , 04:14 PM , 04:28 PM
[2017-11-17] MEDS: Propafenone 150 MG Tablet PO SCH (21:27)
[2017-11-18 04:29] LABS: Baso % (Auto) 0.3 % (0.0-2.0); Eos # (Auto) 0.1 th/mm3 (0.0-0.4); Eos % (Auto) 1.2 % (0.0-4.0); Hematocrit 37.4 % (35.0-46.0); Hemoglobin 12.6 gm/dL (11.6-15.3); Lymph # (Auto) 1.8 th/mm3 (1.0-4.8); Mean Corpuscular HGB Conc 33.7 % (32.0-36.0); Mean Corpuscular Hemoglobin 31.6 pg (27.0-34.0); Mean Corpuscular Volume 93.8 fL (80.0-100.0); Mean Platelet Volume 7.7 fL (7.0-11.0); Mono # (Auto) 0.6 th/mm3 (0.0-0.9); Mono % (Auto) 8.4 % (0.0-8.0); Neut # (Auto) 4.3 th/mm3 (1.8-7.7); Neut % (Auto) 64.1 % (16.0-70.0); Platelet Count 231 th/mm3 (150-450); Red Blood Count 3.99 mil/mm3 (4.00-5.30); Red Cell Distribution Width 14.5 % (11.6-17.2); White Blood Count 6.8 th/mm3 (4.0-11.0)
[2017-11-18 04:41] LABS: Calcium 8.2 mg/dL (8.5-10.1); Carbon Dioxide 25.5 meq/L (21.0-32.0); Potassium 3.8 meq/L (3.5-5.1)
[2017-11-18] MEDS: Sod Chloride 0.9% Inj 1,000 ML IV.CONT SCH ×3 (05:22→19:56)
[2017-11-18] MEDS: Levothyroxine 100 MCG Tablet PO SCH (06:00)
[2017-11-18] MEDS: Levothyroxine 75 MCG Tablet PO SCH (06:00)
[2017-11-18] MEDS: Propafenone 150 MG Tablet PO SCH ×2 (09:29→21:11)
[2017-11-18] MEDS: Isosorbide Mononitrate 30 MG ER 24HR Tablet (Imdur) PO SCH (09:29)
--- NOTE | 2017-11-18 10:36 | P.HP ---
History of Present Illness Primary Care Physician: Casper Vanessa MD, PhD Chief Complaint: Chest discomfort and heaviness History of Present Illness: 72-year-old female for past medical history of hypertension, paroxysmal atrial fibrillation who presented yesterday November 17, 2017 to [place] [facility] for evaluation of 3 hour history of substernal left-sided chest pain described as heavy without any associated heart palpitation, shortness of breath or diaphoresis. Patient states she was on the phone during which she had a heated discussion. Cardiology was consulted and patient was transferred to the [facility] where she underwent left heart catheterization without any intervention or PCI. Patient was seen this morning and reported improvement of chest pressure. She had no other issues. - Diagnosis (1) Chest pain (2) PAF (paroxysmal atrial fibrillation) (3) Hypertension Inpatient Certification: I certify that the inpatient services were ordered in accordance with Medicare regulations governing the order. This includes certification that hospital inpatient services are reasonable and necessary and in the case of services not specified as inpatient-only under 42 CFR 419.22(n), that they are appropriately provided as inpatient services in accordance to with the 2-midnight benchmark under 43 CFR 412.3(e) Estimated Total Length of Stay (Days): 2 Plans for Post Hospital Care: Not yet determined Review of Systems All other systems reviewed negative except as stated in HPI PMFSH - History History Provided By: Patient - Medical History Medical History: Medical History (Last Reviewed 11/17/17 @ 12:12 by Frida Hernandez RN) Atrial fibrillation Back pain Hypertension Hypothyroid - Surgical History Surgical History: Surgical History (Last Reviewed 11/17/17 @ 12:12 by Frida Hernandez RN) H/O foot surgery H/O knee surgery Hx of appendectomy Hx of tonsillectomy Previous back surgery - Family History Family History: Family History (Last Updated 11/18/17 @ 10:34 by Demarco Trinh MD) Other Family history of heart disease - Tobacco History Second Hand Smoke Exposure: No Smoking Status: Former smoker - Alcohol History How Often Do You Have a Drink Containing Alcohol: 2 to 4 times a month - Substance Use History Substance History: No History of Abuse - Travel History Recent Travel in the [place] Within the Last 8 Weeks: No Recent Travel Out of the Country Within the Last 8 Weeks: No - Immunization History Tetanus Immunization: <5 Years Hx Influenza Vaccine This Season: Yes Medications and Allergies Active Medications: Active Medications Aspirin (Ecotrin) 81 mg PO DAILY [facility] Last Admin: 11/18/17 09:28 Dose: 81 mg Carvedilol (Coreg) 3.125 mg PO BID [facility] Last Admin: 11/18/17 09:29 Dose: 3.125 mg Clopidogrel Bisulfate (Plavix) 75 mg PO DAILY [facility] Last Admin: 11/18/17 09:29 Dose: 75 mg Sodium Chloride (Ns Inj) 1,000 mls @ 120 mls/hr IV.CONT .Q8H20M [facility] Last Admin: 11/18/17 09:05 Dose: Not Given Isosorbide Mononitrate (Imdur) 30 mg PO DAILY [facility] Last Admin: 11/18/17 09:29 Dose: 30 mg Levothyroxine Sodium (Synthroid) 100 mcg PO DAILY@0600 [facility] Last Admin: 11/18/17 06:00 Dose: 100 mcg Levothyroxine Sodium (Synthroid) 75 mcg PO DAILY@0600 [facility] Last Admin: 11/18/17 06:00 Dose: 75 mcg Losartan Potassium (Cozaar) 25 mg PO BID [facility] Last Admin: 11/18/17 09:29 Dose: 25 mg Pravastatin Sodium (Pravachol) 20 mg PO HS [facility] Last Admin: 11/17/17 20:25 Dose: 20 mg Propafenone HCl (Rythmol) 150 mg PO BID [facility] Last Admin: 11/18/17 09:29 Dose: 150 mg Sodium Chloride (Ns Flush) 2 ml IV.FLUSH UNSCH PRN PRN Reason: FLUSH AFTER USING IV ACCESS Allergies Allergy/AdvReac Type Severity Reaction Status Date / Time No Known Allergies Allergy Unknown NONE Uncoded 10/06/17 09:34 Home Medications Medication Instructions Recorded Confirmed Type apixaban [Eliquis] 5 mg PO BID 10/01/17 11/17/17 History levothyroxine 175 mcg PO DAILY 10/01/17 11/17/17 History multivitamin with minerals 1 tab PO DAILY 10/01/17 11/17/17 History [Multiple Vitamin-Minerals] propafenone 150 mg PO BID 10/01/17 11/17/17 History cyanocobalamin (vitamin B-12) 1,000 mcg PO DAILY 10/06/17 11/17/17 History [Vitamin B-12] losartan-hydrochlorothiazide 1 tab PO DAILY 10/06/17 11/17/17 History calcium carbonate [Calcium 500] 600 mg PO BID 11/08/17 11/17/17 History cholecalciferol (vitamin D3) 5,000 unit PO DAILY 11/08/17 11/17/17 History [Vitamin D3] Exam Vital signs: Vital Signs 11/17/17 12:10 11/17/17 12:15 11/17/17 12:20 Temperature 97.5 F L Pulse Rate 65 65 Respiratory Rate 26 H Blood Pressure 157/94 H Pulse Oximetry 100 98 98 11/17/17 13:05 11/17/17 13:15 11/17/17 13:20 Temperature Pulse Rate 66 58 L 60 Respiratory Rate 18 16 20 Blood Pressure 122/71 86/51 L 97/76 L Pulse Oximetry 98 99 98 11/17/17 13:35 11/17/17 13:50 11/17/17 14:05 Temperature Pulse Rate 64 62 62 Respiratory Rate 16 18 16 Blood Pressure 137/70 133/83 115/70 Pulse Oximetry 98 97 99 11/17/17 16:15 11/17/17 19:00 11/17/17 20:00 Temperature 98.7 F Pulse Rate 86 84 Respiratory Rate Blood Pressure 118/57 L Pulse Oximetry 94 L 97 11/17/17 21:00 11/17/17 22:00 11/17/17 23:00 Temperature Pulse Rate 84 82 76 Respiratory Rate Blood Pressure Pulse Oximetry 11/17/17 23:51 11/18/17 00:00 11/18/17 01:00 Temperature 98.7 F Pulse Rate 59 L 78 78 Respiratory Rate 18 18 Blood Pressure 102/61 100/59 L Pulse Oximetry 11/18/17 02:00 11/18/17 03:00 11/18/17 04:00 Temperature 98.5 F Pulse Rate 76 80 67 Respiratory Rate 16 Blood Pressure 120/68 Pulse Oximetry 11/18/17 05:24 11/18/17 06:00 11/18/17 07:45 Temperature 98.2 F Pulse Rate 72 61 66 Respiratory Rate 18 Blood Pressure 138/82 Pulse Oximetry 96 Intake & Output 11/17/17 11/18/17 11/18/17 18:59 06:59 18:59 Intake Total 1240 / 1240 Output Total 600 / 600 Balance 640 / 640 Weight 59.1 kg Intake: IV 1000 / 1000 NS Inj 1,000 ML @ 120 mls/hr IV 1000 / 1000 .CONT .Q8H20M ROSA MARIA Rx#: [id number] Oral 240 / 240 Output: Urine 600 / 600 Other: # Voids 2 Date of Last Bowel Movement 11/16/17 Narrative: GENERAL: NAD SKIN: Warm and dry. HEAD: Atraumatic. Normocephalic. EYES: Pupils equal and round. No scleral icterus. No injection or drainage. ENT: No nasal bleeding or discharge. Mucous membranes pink and moist. NECK: Trachea midline. No JVD. CARDIOVASCULAR: Regular rate and rhythm. RESPIRATORY: No accessory muscle use. Clear to auscultation. Breath sounds equal bilaterally. GASTROINTESTINAL: Abdomen soft, non-tender, nondistended. Hepatic and splenic margins not palpable. MUSCULOSKELETAL: Extremities without clubbing, cyanosis, or edema. No obvious deformities. NEUROLOGICAL: Awake and alert. No obvious cranial nerve deficits. Motor grossly within normal limits. Five out of 5 muscle strength in the arms and legs. Normal speech. PSYCHIATRIC: Appropriate mood and affect; insight and judgment normal. Results - Labs CBC & Chem 7: 11/18/17 03:58 11/18/17 03:58 Labs: Laboratory Results - last 24 hr 11/17/17 11/17/17 11/17/17 12:20 12:20 12:20 CBC w Diff Auto diff final WBC 10.9 RBC 4.46 Hgb 13.9 Hct 41.7 MCV 93.5 MCH 31.2 MCHC 33.3 RDW 13.7 Plt Count 334 MPV 8.2 Neut % (Auto) 72.7 H Lymph % (Auto) 19.1 [place] % (Auto) 6.9 Eos % (Auto) 0.7 Baso % (Auto) 0.6 Neut # (Auto) 7.8 H Lymph # (Auto) 2.1 [place] # (Auto) 0.8 Eos # (Auto) 0.1 Baso # (Auto) 0.1 WBC Differential . Differential Comment . PT 10.3 INR 1.0 APTT 25.9 Sodium 136 Potassium 3.9 Chloride 101 Carbon Dioxide 24.7 Anion Gap 10 BUN 19 H Creatinine 0.97 Estimated GFR 56 L Random Glucose 123 H Calcium 9.3 Magnesium 2.2 Total Creatine Kinase 105 CK-MB (CK-2) 3.0 Troponin I 0.38 H 11/18/17 11/18/17 03:58 03:58 CBC w Diff WBC 6.8 RBC 3.99 L Hgb 12.6 Hct 37.4 MCV 93.8 MCH 31.6 MCHC 33.7 RDW 14.5 Plt Count 231 D MPV 7.7 Neut % (Auto) 64.1 Lymph % (Auto) 26.0 [place] % (Auto) 8.4 H Eos % (Auto) 1.2 Baso % (Auto) 0.3 Neut # (Auto) 4.3 Lymph # (Auto) 1.8 [place] # (Auto) 0.6 Eos # (Auto) 0.1 Baso # (Auto) 0.0 WBC Differential . Differential Comment Auto diff final PT INR APTT Sodium 141 Potassium 3.8 Chloride 107 Carbon Dioxide 25.5 Anion Gap 9 BUN 18 Creatinine 0.80 Estimated GFR 70 L Random Glucose 101 Calcium 8.2 L D Magnesium Total Creatine Kinase CK-MB (CK-2) Troponin I - Imaging Impressions Chest X-Ray 11/17/17 12:13 CONCLUSION: No consolidation or effusion. Minimal basilar scarring or atelectasis. Caprini VTE Risk Assessment Caprini VTE Risk Assessment: Moderate/High Risk (score >= 2) Caprini Risk Assessment Model: Point Value = 1 Point Value = 2 Point Value = 3 Point Value = 5 Age 41-60 Minor surgery BMI > 25 kg/m2 Swollen legs Varicose veins or History of unexplained or recurrent spontaneous Oral contraceptives or hormone replacement Sepsis (< 1 month) Serious lung disease, including pneumonia (< 1 month) Abnormal pulmonary function Acute myocardial infarction Congestive heart failure (< 1 month) History of inflammatory bowel disease Medical patient at bed rest Age 61-74 Arthroscopic surgery Major open surgery (> 45 min) Laparoscopic surgery (> 45 min) Malignancy Confined to bed (> 72 hours) Immobilizing plaster cast Central venous access Age >= 75 History of VTE Family history of VTE Factor V Leiden Prothrombin [id number] Lupus anticoagulant Anticardiolipin antibodies Elevated serum homocysteine Heparin-induced thrombocytopenia Other congenital or acquired thrombophilia Stroke (< 1 month) Elective arthroplasty Hip, pelvis, or leg fracture Acute spinal cord injury (< 1 month) Prophylaxis Regimen: Total Risk Factor Score Risk Level Prophylaxis Regimen 0-1 Low Early ambulation 2 Moderate Order ONE of the following: *Sequential Compression Device (SCD) *Heparin 5000 units SQ BID 3-4 Higher Order ONE of the following medications: *Heparin 5000 units SQ TID *Enoxaparin/Lovenox 40 mg SQ daily (WT < 150 kg, CrCl > 30 mL/min) *Enoxaparin/Lovenox 30 mg SQ daily (WT < 150 kg, CrCl > 10-29 mL/min) *Enoxaparin/Lovenox 30 mg SQ BID (WT < 150 kg, CrCl > 30 mL/min) AND/OR *Sequential Compression Device (SCD) 5 or more Highest Order ONE of the following medications: *Heparin 5000 units SQ TID (Preferred with Epidurals) *Enoxaparin/Lovenox 40 mg SQ daily (WT < 150 kg, CrCl > 30 mL/min) *Enoxaparin/Lovenox 30 mg SQ daily (WT < 150 kg, CrCl > 10-29 mL/min) *Enoxaparin/Lovenox 30 mg SQ BID (WT < 150 kg, CrCl > 30 mL/min) AND *Sequential Compression Device (SCD) Assessment and Plan - Assessment (1) Chest pain Code(s): R07.9 - Chest pain, unspecified Status: Acute (2) PAF (paroxysmal atrial fibrillation) Code(s): I48.0 - Paroxysmal atrial fibrillation Status: Chronic (3) Hypertension Code(s): I10 - Essential (primary) hypertension Status: Chronic - Plan 72-year-old female with Atypical chest pain Underwent emergent heart catheterization however without any PCI Ruled out per protocol Patient currently on Imdur, Plavix 75 mg daily, aspirin 81 mg daily, Coreg twice daily, statin PAF Continue Rythmol twice daily, Coreg Resume Eliquis per cardiology and continue aspirin Hypertension Continue Coreg Hypothyroidism Continue Synthroid DVT prophylaxis: Eliquis
[2017-11-19] MEDS: Sod Chloride 0.9% Inj 1,000 ML IV.CONT SCH (02:31)
[2017-11-19] MEDS: Levothyroxine 100 MCG Tablet PO SCH (05:31)
[2017-11-19] MEDS: Levothyroxine 75 MCG Tablet PO SCH (05:31)
[2017-11-19 07:31] VITALS: BP 144/69; RESP 16; TEMP 97.6
[2017-11-19] MEDS: Propafenone 150 MG Tablet PO SCH (08:40)
[2017-11-19] MEDS: Isosorbide Mononitrate 30 MG ER 24HR Tablet (Imdur) PO SCH (08:40)
[2017-11-19 09:00] VITALS: O2SAT 98
--- NOTE | 2017-11-19 09:15 | P.PN ---
Subjective Interval history: Follow-up atypical chest pain November 19, 2017-patient seen and examined, denies any chest pain and no acute event overnight. She has been clear for discharge by cardiology. Physical Exam Vital signs: Vital Signs 11/18/17 10:00 11/18/17 11:00 11/18/17 11:25 Temperature 97.6 F Pulse Rate 72 70 62 Respiratory Rate 18 Blood Pressure 92/50 L Blood Pressure [Left Arm] Blood Pressure [Right Arm] Pulse Oximetry 95 11/18/17 11:32 11/18/17 12:00 11/18/17 13:00 Temperature Pulse Rate 66 62 Respiratory Rate Blood Pressure Blood Pressure [Left Arm] 92/50 L Blood Pressure [Right Arm] 92/54 L Pulse Oximetry 11/18/17 14:00 11/18/17 15:00 11/18/17 15:52 Temperature 97.8 F Pulse Rate 58 L 78 67 Respiratory Rate 18 Blood Pressure 97/60 L Blood Pressure [Left Arm] Blood Pressure [Right Arm] Pulse Oximetry 96 11/18/17 16:00 11/18/17 17:00 11/18/17 18:00 Temperature Pulse Rate 62 70 64 Respiratory Rate Blood Pressure Blood Pressure [Left Arm] Blood Pressure [Right Arm] Pulse Oximetry 11/18/17 19:00 11/18/17 20:00 11/18/17 21:00 Temperature 98.1 F Pulse Rate 69 69 74 Respiratory Rate 16 Blood Pressure 111/59 L Blood Pressure [Left Arm] Blood Pressure [Right Arm] Pulse Oximetry 97 11/18/17 22:00 11/18/17 22:23 11/18/17 22:40 Temperature Pulse Rate 63 63 Respiratory Rate Blood Pressure 106/62 Blood Pressure [Left Arm] Blood Pressure [Right Arm] Pulse Oximetry 95 11/18/17 23:00 11/19/17 00:00 11/19/17 01:00 Temperature 98 F Pulse Rate 65 66 56 L Respiratory Rate 18 Blood Pressure 111/56 L Blood Pressure [Left Arm] Blood Pressure [Right Arm] Pulse Oximetry 98 11/19/17 02:00 11/19/17 02:33 11/19/17 03:00 Temperature Pulse Rate 55 L 49 L 60 Respiratory Rate Blood Pressure Blood Pressure [Left Arm] Blood Pressure [Right Arm] Pulse Oximetry 11/19/17 04:00 11/19/17 04:30 11/19/17 05:00 Temperature 98 F Pulse Rate 62 57 L 60 Respiratory Rate 18 Blood Pressure 112/58 L Blood Pressure [Left Arm] Blood Pressure [Right Arm] Pulse Oximetry 98 11/19/17 07:00 11/19/17 07:21 11/19/17 08:58 Temperature 97.6 F Pulse Rate 60 64 Respiratory Rate 16 Blood Pressure 144/69 H Blood Pressure [Left Arm] Blood Pressure [Right Arm] Pulse Oximetry 98 97 11/19/17 08:59 Temperature Pulse Rate Respiratory Rate Blood Pressure Blood Pressure [Left Arm] Blood Pressure [Right Arm] Pulse Oximetry 98 Intake & Output 11/18/17 11/19/17 11/19/17 18:59 06:59 18:59 Intake Total 1200 / 1200 240 / 240 Output Total 100 / 100 Balance 1100 / 1100 240 / 240 Weight 60.5 kg Intake: Oral 1200 / 1200 240 / 240 Output: Urine 100 / 100 Other: # Voids 4 2 Date of Last Bowel Movement 11/16/17 Narrative: GENERAL: NAD SKIN: Warm and dry. HEAD: Normocephalic. EYES: No scleral icterus. No injection or drainage. NECK: Supple, trachea midline. No JVD or lymphadenopathy. CARDIOVASCULAR: Regular rate and rhythm without murmurs, gallops, or rubs. RESPIRATORY: Breath sounds equal bilaterally. No accessory muscle use. GASTROINTESTINAL: Abdomen soft, non-tender, nondistended. MUSCULOSKELETAL: No cyanosis, or edema. BACK: Nontender without obvious deformity. No CVA tenderness. Results - Labs CBC & Chem 7: 11/18/17 03:58 11/18/17 03:58 Assessment and Plan - Assessment (1) Chest pain Code(s): R07.9 - Chest pain, unspecified Status: Acute (2) PAF (paroxysmal atrial fibrillation) Code(s): I48.0 - Paroxysmal atrial fibrillation Status: Chronic (3) Hypertension Code(s): I10 - Essential (primary) hypertension Status: Chronic - Plan 72-year-old female with Atypical chest pain Underwent emergent heart catheterization however without any PCI Ruled out per protocol Patient currently on Imdur, Plavix 75 mg daily, aspirin 81 mg daily, Coreg twice daily, statin PAF Continue Rythmol twice daily, Coreg Resume Eliquis per cardiology tonight and continue aspirin Hypertension Continue Coreg Hypothyroidism Continue Synthroid DVT prophylaxis: Eliquis Discharge Planning: Discharge patient to home Condition on discharge: Improved Regular Diet as tolerated Ad Cheryle activity Rx written: See EMR Follow-up with primary care physician in 1 week Cardiology in 2-3 weeks
[2017-11-19 11:37] VITALS: PULSE 68
== END 2017-11-19 11:55 | disposition home or self-care (01) ==
LOC: PHED 11:56 → HDIC 14:20 → HDOC 15:59 → INTOOBSV 15:59 → HCPC 15:59 → HDIC 15:59 → HCPC 18:55
PROVIDERS: ADMIT Hospitalist; ATTEND Hospitalist